=== PATIENT | male | born 1955 | race Caucasian/White ===

== ENCOUNTER 2017-06-12 08:20 | Day surgery (SDC) | payer MEDICARE, OTHER ==
[2014-09-14 12:00] VITALS: BP 156/87
--- NOTE | 2017-06-13 11:46 | GI Report ---
REFERRING PHYSICIAN: Dr. Toby Sibley MECHANICAL FACILITIES TECHNICIAN: Bob Hector MD PROCEDURE MEDICATION: Propofol as per anesthesia. INDICATIONS: Patient is a 62-year-old man who had an adenomatous polyp removed back in 2014. Over the last month or so, he has had a change in his bowel habits with red blood mixed in with his stools. Because of this change, he is referred for a colonoscopy at present. He denies constipation or narrowing caliber of the stool. The blood has usually been fresh red blood. PROCEDURE PERFORMED: Colonoscopy, biopsy, and polypectomy. PROCEDURE: On rectal exam, patient does have some hemorrhoids present. The Olympus video colonoscope was advanced into the rectum and slowly advanced to the cecum. The appendiceal orifice and terminal ileum were normal. On slow withdrawal, the cecum, ascending colon, and transverse colon with no obvious intraluminal lesions noted. The descending colon and sigmoid had some redundancy. At 20 cm , the patient has like a 2 mm to 3 mm flat polyp that was cold biopsy removed. Retroflexion of the rectum shows hemorrhoids. Patient tolerated the procedure well. FINDINGS: 1. A small flat sigmoid polyp removed. 2. Patient does have internal and external hemorrhoids. RECOMMENDATIONS: 1. I think he needs to be on Metamucil or Citrucel daily. 2. He could also add MiraLAX if he still has to strain. 2. Pending the pathology of the polyp, would consider re-looking at his colon in 5 years. 3. Follow up with Dr. Sibley. cc: Dr. Toby BURRELL
== END 2017-06-12 08:21 ==
LOC: OPSURG 08:20
PROVIDERS: ATTEND Internal Medicine Gastroenterology
DX: K63.5 Polyp of colon (principal); D12.5 Benign neoplasm of sigmoid colon; K92.1 Melena; K64.9 Unspecified hemorrhoids
CPT/HCPCS: J2001; J2704; J7120; 45385; S1016

== ENCOUNTER 2018-05-22 15:32 | Outpatient (CLI) | payer MEDICARE, OTHER ==
[2014-09-14 12:00] VITALS: BP 156/87
--- NOTE | 2018-05-22 17:52 | Diagnostic Imaging Report ---
EVANGELINA HOPKINS [facility] [address] [facility] [address] [place], [place]. [address] Report Submission Date: May 22, 2018 5:06:22 PM CDT Patient Study Name: KISHORE LU Date: May 22, 2018 3:34:30 PM CDT Modality Type: DX Gender: M Description: CHEST 2VIEW : 51 Institution: [facility] Physician: EVANGELINA HOPKINS PA and lateral chest History: Cough PA and lateral chest dated May 22, 2018 is without prior radiographs available for comparison. Heart size is borderline. A somewhat limited degree of inspiration was achieved with mild subsegmental atelectasis at both lung bases. There is no confluent infiltrate or pleural effusion. Impression: Limited inspiration with mild bibasilar atelectasis. Otherwise, no active disease. Electronically signed on May 22, 2018 5:06:22 PM CDT by: Yane BURRELL
== END 2018-05-22 15:33 ==
LOC: RAD 15:32
PROVIDERS: ATTEND Family Medicine
DX: R06.02 Shortness of breath (principal)
CPT/HCPCS: 71046

== ENCOUNTER 2018-10-26 11:13 | Outpatient (CLI) | payer MEDICARE, OTHER ==
[2014-09-14 12:00] VITALS: BP 156/87
--- NOTE | 2018-10-26 14:18 | Diagnostic Imaging Report ---
ASTER LING [facility] [address] [facility] [id number] Report Submission Date: Oct 26, 2018 2:04:09 PM CDT Patient Study Name: KISHORE LU Date: Oct 26, 2018 11:19:00 AM CDT Modality Type: DX Gender: M Description: KNEE 1 OR 2 VIEWS : 51 Institution: [facility] Physician: ASTER LING Exam: Left knee. History: Pain. AP, lateral and sunrise view of the left knee are submitted. No signs of acute fracture or dislocation is seen. No bony erosions are seen. An anterior joint effusion is suspected. Impression: Anterior joint effusion. Electronically signed on Oct 26, 2018 2:04:09 PM CDT by: Alex BURRELL
--- NOTE | 2018-10-26 14:19 | Diagnostic Imaging Report ---
ASTER LING [facility] [address] [facility].[address] [address] Report Submission Date: Oct 26, 2018 2:05:08 PM CDT Patient Study Name: KISHORE LU Date: Oct 26, 2018 11:19:00 AM CDT Modality Type: DX Gender: M Description: BILAT KNEE 1 OR 2 VIEWS : 51 Institution: [facility] Physician: ASTER LING Exam: Bilateral AP knees. History: Pain. Mild medial compartment narrowing in the right knee is noticed. No acute fracture is seen. Soft tissue prominence over the left knee is noted as compared to the right. Impression: Medial compartment narrowing on the right knee. Soft tissue swelling over the left knee. Electronically signed on Oct 26, 2018 2:05:08 PM CDT by: Alex BURRELL
== END 2018-10-26 11:15 ==
LOC: RAD 11:13
PROVIDERS: ATTEND Family Medicine
DX: M17.12 Unilateral primary osteoarthritis, left knee (principal)
CPT/HCPCS: 73560